=== PATIENT | female | born 1945 | race Two or more races ===

== ENCOUNTER 2017-11-24 20:58 | Emergency (ER) | payer MEDICAID, MEDICARE ==
[~2017-11-24] VITALS: Ht 162.6 cm; Wt 77.1 kg
[2017-11-24 21:00] VITALS: BP 148/78
[2017-11-24] MEDS ORDERED: IBUPROFEN 600 MG TABLET PO ONE ×2 (21:30→21:37)
== END 2017-11-24 23:14 | disposition home or self-care (01) ==
LOC: ER 21:01
DX: S93.401A Sprain of unspecified ligament of right ankle, initial encounter (principal); Z88.5 Allergy status to narcotic agent; X58.XXXA Exposure to other specified factors, initial encounter; Y93.89 Activity, other specified; Y92.89 Other specified places as the place of occurrence of the external cause; Y99.8 Other external cause status
CPT/HCPCS: 73610; 99284; A4606; Z7610

== ENCOUNTER 2021-08-05 18:35 | Emergency (ER) | payer MEDICARE, OTHER ==
[~2021-08-05] VITALS: Ht 162.6 cm; Wt 79.4 kg
--- NOTE | 2021-08-05 18:50 | NUR ---
DR ESQUIVEL AT BEDSIDE FOR EVAL
--- NOTE | 2021-08-05 18:55 | NUR ---
The patient is received in ER bed #10 for c/o back pain since . The patient is alert and oriented x4. In room air and denies SOB. Respiration regular and unlabored. Attached to the monitor. Warm blanket provided for comfort. Will continue to monitor the patient.
[2021-08-05] MEDS ORDERED: IV NS 0.9% 1,000 ML BAG IV ONE (19:00)
[2021-08-05] MEDS ORDERED: ONDANSETRON HCL/PF 4 MG/2 ML VIAL IVP ONE (19:00)
[2021-08-05] MEDS ORDERED: FENTANYL PF 100MCG/2ML AMPUL IV ONE (19:00)
--- NOTE | 2021-08-05 19:08 | NUR ---
IV LINE IS ESTABLISHED, BLOOD SPECIMEN COLLECTED AND SENT TO THE LAB. THE LINE IS SALINE LOCKED.
[2021-08-05] MEDS ORDERED: ONDANSETRON HCL/PF 4 MG/2 ML VIAL ONE (19:11)
[2021-08-05] MEDS ORDERED: FENTANYL PF 100MCG/2ML AMPUL ONE (19:13)
--- NOTE | 2021-08-05 19:24 | NUR ---
REPORT GIVEN TO NURSE CAMILA FOR DEYSI
[2021-08-05 19:56] LABS: BASOPHILS % (AUTO) 0.4 % (0.0-2.0); EOSINOPHILS % (AUTO) 1.4 % (0.0-6.0); HEMATOCRIT 42 % (33-45); HEMOGLOBIN 14.3 g/dL (11.5-14.8); LYMPHOCYTES # (AUTO) 1.6 K/uL (0.8-4.8); LYMPHOCYTES % (AUTO) 22.8 % (20.0-44.0); MEAN CORPUSCULAR HGB CONC 34 g/dl (31.0-36.0); MEAN CORPUSCULAR VOLUME 89 fL (82-100); MONOCYTES # (AUTO) 0.2 K/uL (0.1-1.30); MONOCYTES % (AUTO) 3.4 % (2.0-12.0); PLATELET COUNT (AUTO) 268 K/uL (150-450); RED BLOOD CELL COUNT(AUTO) 4.73 MIL/uL (4.0-5.2); WHITE BLOOD COUNT (AUTO) 6.9 K/uL (4.3-11.0)
[2021-08-05 20:09] LABS: ALBUMIN 3.3 g/dL (3.4-5.0); BILIRUBIN,DIRECT 0.1 mg/dL (0.0-0.2); BILIRUBIN,TOTAL 0.5 mg/dL (0.2-1.0); CALCIUM, SERUM 8.8 mg/dL (8.5-10.1); POTASSIUM 4.1 mmol/L (3.5-5.1); TOTAL PROTEIN, SERUM 7.9 g/dL (6.4-8.2)
[2021-08-05] MEDS ORDERED: IOHEXOL-350 100 ML VIAL IV ONE (20:16)
[2021-08-05] MEDS ORDERED: IV NS 0.9% 250 ML IV ONE (20:16)
[2021-08-05] MEDS ORDERED: CT SWABBABLE VALVE TRANS SET 1 EA INFUS.SET MC ONE (20:17)
--- NOTE | 2021-08-05 20:19 | NUR ---
BECKY, SON: [phone]
--- NOTE | 2021-08-05 20:27 | NUR ---
RETURN FROM CT
--- NOTE | 2021-08-05 21:07 | NUR ---
URINE COLLECTED AND SENT TO LAB
[2021-08-05 21:10] VITALS: BP 130/79
[2021-08-05] MEDS ORDERED: IBUP-1955 PO ×2 (21:27→22:12)
[2021-08-05] MEDS ORDERED: CYCL5TAB PO ×2 (21:27→22:12)
[2021-08-05] MEDS ORDERED: DIAZEPAM 5 MG TABLET PO ONE (22:00)
[2021-08-05] MEDS ORDERED: DIAZEPAM 5 MG TABLET ONE (22:08)
[2021-08-05 22:12] LABS: BILIRUBIN,URINE NEGATIVE (NEGATIVE); COLOR,URINE YELLOW (YELLOW); LEUKOCYTE ESTERASE ,URINE NEGATIVE (NEGATIVE); NITRITE, URINE NEGATIVE (NEGATIVE); PROTEIN,URINE NEGATIVE (NEGATIVE); UGLUCOSE NEGATIVE (NEGATIVE); UROBILINOGEN,URINE 0.2 EU/dL (0.2)
--- NOTE | 2021-08-05 22:41 | NUR ---
Patient discharged to home in stable condition. Rx and Written and verbal after care instructions given. Patient verbalizes understanding of instruction.
[2021-08-06 08:53] LABS: RBC,URINE 0-2 /HPF (0-2); WBC,URINE 0-2 /HPF (0-3)
[2021-08-06 08:55] LABS: BACTERIA,URINE Few /HPF (None Seen); SQUAMOUS EPITHELIAL CELL,UR Few /HPF (None Seen); YEAST,URINE Rare /HPF (None Seen)
== END 2021-08-05 22:41 | disposition home or self-care (01) ==
LOC: ER 18:35
DX: M54.6 Pain in thoracic spine (principal); K80.80 Other cholelithiasis without obstruction; R10.11 Right upper quadrant pain; Z88.5 Allergy status to narcotic agent; Z79.1 Long term (current) use of non-steroidal anti-inflammatories (NSAID); Z79.899 Other long term (current) drug therapy
CPT/HCPCS: 36415; 71275; 74174; 80048; 80076; 81001; 83690; 85025; 85730; 93005; 96361; 96374; 96375; 99285; J2405; J3010; J7030; J7050; Q9967

== ENCOUNTER 2021-08-06 03:54 | Emergency (ER) | payer OTHER ==
[~2021-08-06] VITALS: Ht 162.6 cm; Wt 79.4 kg
[~2021-08-06 03:54] MED LIST: CYCL5TAB PO; IBUP-1955 PO
--- NOTE | 2021-08-06 04:11 | NUR ---
BIB SON FOR C/O AN EPISODE OF SHARP MID STERNAL CP 10/10 40 MIN CRYSTAL GAZER CURRENTLY PAIN SCALE 6/10. PATIENT ALERT AND ORIENTED X3. AMBULATORY WITH NON LABORED BREATHING. PATIENT PLACED IN BED 10 ON MONITOR AND POX.
--- NOTE | 2021-08-06 04:26 | NUR ---
BLOOD COLLECTED AND SENT TO LAB
[2021-08-06 04:29] LABS: BASOPHILS % (AUTO) 0.3 % (0.0-2.0); EOSINOPHILS % (AUTO) 0.9 % (0.0-6.0); HEMATOCRIT 42 % (33-45); HEMOGLOBIN 14.3 g/dL (11.5-14.8); LYMPHOCYTES # (AUTO) 1.4 K/uL (0.8-4.8); LYMPHOCYTES % (AUTO) 18.3 % (20.0-44.0); MEAN CORPUSCULAR HGB CONC 34 g/dl (31.0-36.0); MEAN CORPUSCULAR VOLUME 89 fL (82-100); MONOCYTES # (AUTO) 0.4 K/uL (0.1-1.30); MONOCYTES % (AUTO) 4.7 % (2.0-12.0); NEUTROPHILS # (AUTO) 5.7 K/uL (1.8-8.9); NEUTROPHILS % (AUTO) 75.8 % (43.0-81.0); PLATELET COUNT (AUTO) 263 K/uL (150-450); RED BLOOD CELL COUNT(AUTO) 4.74 MIL/uL (4.0-5.2); WHITE BLOOD COUNT (AUTO) 7.5 K/uL (4.3-11.0)
[2021-08-06 04:44] LABS: CALCIUM, SERUM 9.2 mg/dL (8.5-10.1); CARBON DIOXIDE 26 mmol/L (21-32); CHLORIDE 104 mmol/L (98-107); CREATININE 1.1 mg/dL (0.6-1.3); GLUCOSE 123 mg/dL (74-106); SODIUM SERUM 138 mmol/L (136-145); UREA NITROGEN, BLOOD 21 mg/dL (7-18)
[2021-08-06 08:39] VITALS: BP 126/66
--- NOTE | 2021-08-06 08:39 | NUR ---
IV removed. Catheter intact and site benign. Pressure and 4x4 applied to site. No bleeding noted.Patient discharged to home in stable condition. Written and verbal after care instructions given. Patient verbalizes understanding of instruction.
== END 2021-08-06 08:39 | disposition home or self-care (01) ==
LOC: ER 03:54
DX: R07.89 Other chest pain (principal); Z83.511 Family history of glaucoma; Z87.19 Personal history of other diseases of the digestive system; Z88.5 Allergy status to narcotic agent; Z79.1 Long term (current) use of non-steroidal anti-inflammatories (NSAID); Z79.899 Other long term (current) drug therapy
CPT/HCPCS: 36415; 71045-TC; 80048-TC; 83880; 84484-TC; 85025-TC